=== PATIENT | male | born 1950 | race Caucasian/White ===

== ENCOUNTER 2018-11-09 11:31 | Outpatient (CLI) | payer OTHER ==
[2018-11-09] MEDS ORDERED: NALOXONE HCL 0.4 MG/ML INJ IVP PRN ×2 (11:59→14:19)
[2018-11-09] MEDS ORDERED: MIDAZOLAM 2 MG/2 ML VIAL IVP PRN (11:59)
[2018-11-09] MEDS ORDERED: fentaNYL 100 MCG/2 ML INJ IVP PRN (11:59)
[2018-11-09] MEDS ORDERED: FLUMAZENIL 0.5 MG/5 ML MDV IVP PRN (11:59)
[2018-11-09] MEDS ORDERED: PROPOFOL/EMULSION 500 MG/50 ML BOTTLE IV ONE (12:17)
[2018-11-09] MEDS ORDERED: PROPOFOL 200 MG/20 ML VIAL ONE (12:17)
[2018-11-09] MEDS ORDERED: ROCURONIUM 100 MG/10 ML VIAL ONE (13:07)
--- NOTE | 2018-11-09 13:07 | PDANEPAE ---
ANE Past Medical History - Cardiovascular History Hx Hypertension: No Hx Arrhythmias: No Hx Chest Pain: No Hx Coronary Artery / Peripheral Vascular Disease: No Hx CHF / Valvular Disease: No Hx Palpitations: No - Pulmonary History Hx COPD: No Hx Asthma/Reactive Airway Disease: No Hx Recent Upper Respiratory Infection: No Hx Oxygen in Use at Home: No Hx Sleep Apnea: No Sleep Apnea Screening Result - Last Documented: Negative - Neurologic History Hx Cerebrovascular Accident: No Hx Seizures: No - Endocrine History Hx Diabetes: No - Renal History Hx Renal Disorders: No - Liver History Hx Hepatic Disorders: No - Neurological & Psychiatric Hx Hx Neurological and Psychiatric Disorders: Yes Neurological / Psychiatric History Comment: right side leg pain- nerve pain - Cancer History Hx Cancer: No - Congenital Disorder History Hx Congenital Disorders: No - GI History Hx Gastrointestinal Disorders: No - Other Health History Other Health History: no - Chronic Pain History Chronic Pain: Yes - Surgical History Prior Surgeries: rommel rotaor cuff sx. appy. hernia inguinal ANE Review of Systems Review of Systems: - Exercise capacity METS (RN): 5 METS ANE Patient History - Allergies Allergies/Adverse Reactions: No Known Allergies Allergy (Verified 11/02/18 15:28) - Home Medications Home Medications: Calcium Carbonate [Oyster Shell Calcium 500 mg (OTC)] 500 mg PO BID 03/15/12 [ Last Taken 11/08/18] Herbals/Supplements -Info Only 1 each PO AD 03/15/12 [Last Taken Unknown] Ibuprofen [Motrin 200 mg (OTC)] 400 mg PO BID PRN 03/15/12 [Last Taken 11/08/18] Printer-3 Fatty Acids [Fish Oil 1000 mg (OTC)] 3,000 mg PO DAILY20 03/15/12 [Last Taken 11/08/18] Pharmacy Completed 03/15/12 03/15/12 [Last Taken Unknown] Atorvastatin Calcium 80 tab PO DAILY 11/02/18 [Last Taken 11/08/18] Co Q-10 200 tab PO DAILY 11/02/18 [Last Taken 11/08/18] Ocuvite 1 tab PO DAILY 11/02/18 [Last Taken 11/08/18] Vit B Comp with C/Calcium Carb 1 tab PO DAILY 11/02/18 [Last Taken 11/08/18] Vitamin C 500 tab PO DAILY 11/02/18 [Last Taken 11/08/18] - Smoking Hx Smoking Status: Former smoker - Family Anes Hx Family Hx Anesthesia Complications: no ANE Labs/Vital Signs - Vital Signs Blood Pressure: 115/74 Heart Rate: 68 Respiratory Rate: 16 O2 Sat (%): 90 Height: 175.26 cm Weight: 82.554 kg ANE Physical Exam - Airway Neck exam: FROM Mallampati Score: Class 3 Mouth exam: small mouth opening - Pulmonary Pulmonary: clear to auscultation - Cardiovascular Cardiovascular: regular rate and rhythym - ASA Status ASA Status: II ANE Anesthesia Plan Anesthesia Plan: GA w LMA
[2018-11-09] MEDS ORDERED: ALBUTEROL 3 ML DEYVIAL IH PRN (14:19)
[2018-11-09] MEDS ORDERED: MEPERIDINE 25 MG/0.5 ML AMP IVP PRN (14:19)
[2018-11-09] MEDS ORDERED: ONDANSETRON 4 MG/2 ML VIAL IVP PRN (14:19)
--- NOTE | 2018-11-09 14:20 | POSTANESTH ---
Post Anesthetic Evaluation Cardiovascular Status: Normal, Stable Respiratory Status: Normal, Stable Level of Consciousness/Mental Status: Can Participate in Eval Pain Control: Adequate, Prn Tx Ordered Nausea/Vomiting Control: Adequate, Prn Tx Ordered Complications Possibly Related to Anesthesia: None Noted
[2018-11-09 15:22] VITALS: BP 112/72
== END 2018-11-09 15:23 | disposition home or self-care (01) ==
LOC: FIMAGING 11:31
PROVIDERS: ATTEND Orthopaedic Surgery
DX: M51.36 Other intervertebral disc degeneration, lumbar region (principal); M51.86 Other intervertebral disc disorders, lumbar region; M48.05 Spinal stenosis, thoracolumbar region
CPT/HCPCS: 72148; J2704

== ENCOUNTER → 2018-11-20 | Day surgery (SDC) | payer OTHER ==
--- NOTE | 2018-11-20 13:44 | PDRADPRE ---
Radiology History & Physical Indication for procedure: back pain (L4 and RLE radiculopathy; plan for MAREN) Home medications: Calcium Carbonate [Oyster Shell Calcium 500 mg (OTC)] 500 mg PO BID 03/15/12 [ Last Taken 11/08/18] Herbals/Supplements -Info Only 1 each PO AD 03/15/12 [Last Taken Unknown] Ibuprofen [Motrin 200 mg (OTC)] 400 mg PO BID PRN 03/15/12 [Last Taken 11/08/18] [place]-3 Fatty Acids [Fish Oil 1000 mg (OTC)] 3,000 mg PO DAILY20 03/15/12 [Last Taken 11/08/18] Pharmacy Completed 03/15/12 03/15/12 [Last Taken Unknown] Atorvastatin Calcium 80 tab PO DAILY 11/02/18 [Last Taken 11/08/18] Co Q-10 200 tab PO DAILY 11/02/18 [Last Taken 11/08/18] Ocuvite 1 tab PO DAILY 11/02/18 [Last Taken 11/08/18] Vit B Comp with C/Calcium Carb 1 tab PO DAILY 11/02/18 [Last Taken 11/08/18] Vitamin C 500 tab PO DAILY 11/02/18 [Last Taken 11/08/18] Allergies/Adverse Reactions: No Known Allergies Allergy (Verified 11/02/18 15:28) Mental status: A&Ox3 Heart exam: regular rate and rhythm Lungs exam: clear to auscultation Mallampati Score: Class 2
--- NOTE | 2018-11-20 13:56 | PDRADPN ---
Radiology Procedure Note Date of Procedure: 11/20/18 Radiologist: Petey Phan Anesthesia: Local (Specify) Pre-op Diagnosis: LBP Post-op Diagnosis: LBP Indication: LBP and radiculopathy Procedure: L4 MAREN Finding(s): Successful MAREN - contrast in epidural space Inf/Abcess present in the surg proc area at time of surgery?: No
== END | disposition home or self-care (01) ==
LOC: FIMAGING 13:05
PROVIDERS: ATTEND Radiology Vascular & Interventional Radiology
PROC: 3E0S33Z Introduction of Anti-inflammatory into Epidural Space, Percutaneous Approach (ICD-10-PCS; principal; 2018-11-20)
PROC: 3E0S3BZ Introduction of Anesthetic Agent into Epidural Space, Percutaneous Approach (ICD-10-PCS; principal; 2018-11-20)
DX: M54.16 Radiculopathy, lumbar region (principal)

== ENCOUNTER → 2019-01-30 | Outpatient (CLI) | payer OTHER | LOC: CIMAGING 16:42 ==